=== PATIENT | male | born 1960 | race African-American/Black ===

== ENCOUNTER 2021-08-04 05:48 | Inpatient (IN) | payer MEDICAID ==
[~2021-08-04] VITALS: Ht 177.8 cm; Wt 84.1 kg
[2021-08-04 06:44] LABS: Basophils # (auto) 0.1 10 ^3/uL (0-0.2); Basophils % (auto) 1.2 % (0.0-2.0); Eosinophils # (auto) 0.4 10 ^3/uL (0-0.8); Hematocrit 45.7 % (41.0-53.0); Hemoglobin 15.8 g/dL (13.5-17.5); Lymphocytes # (auto) 2.1 10 ^3/uL (0.4-5.4); Lymphocytes % (auto) 29.3 % (10.0-50.0); Mean Corpuscular Hemoglobin 28.9 pg (28.0-32.0); Mean Corpuscular Hgb Conc. 34.5 g/dL (32.0-36.0); Mean Corpuscular Volume 83.8 fL (80.0-100.0); Monocytes # (auto) 0.6 10 ^3/uL (0-1.3); Monocytes % (auto) 8.6 % (0.0-12.0); Neutrophils % (auto) 54.9 % (37.0-80.0); Nucleated Red Blood Cells % 0.3 %; Red Blood Cells 5.45 10^6/uL (4.5-5.90); Red Cell Distribution Width 13.4 % (11.8-14.3); White Blood Cell 7.2 10^3/uL (4.4-10.8)
[2021-08-04 06:45] LABS: Albumin 3.6 g/dL (3.4-5.0); Potassium 4.1 mmol/L (3.5-5.1)
[2021-08-04 06:47] LABS: BUN/Creatinine Ratio 18.4
[2021-08-04 06:49] LABS: INR 1.01 (0.9-1.15); Partial Thromboplastin Time 26.1 sec (23.6-33.0)
[2021-08-04 06:52] LABS: Bilirubin, Total 0.4 mg/dL (0.2-1.0); Total Protein 7.7 g/dL (6.4-8.2)
[2021-08-04] MEDS ORDERED: ENOXAPARIN SOD 60 MG/0.6 ML SYRINGE SC ONE (07:45)
[2021-08-04] MEDS ORDERED: METOPROLOL TARTRATE 1MG/1ML-5ML VIAL IV ONE (07:45)
[2021-08-04] MEDS ORDERED: ASPirin-EC 81 mg tab PO ONE (07:45)
[2021-08-04] MEDS ORDERED: MORPHINE SULFATE INJECTION 2 MG/ML SYRG IV PRN (13:30)
[2021-08-04] MEDS ORDERED: NITROGLYCERIN 0.4 MG SL TAB SL PRN (13:30)
[2021-08-04] MEDS ORDERED: PROMETHAZINE HCL 25 MG/ML 1ML IV PRN (13:30)
[2021-08-04] MEDS ORDERED: ACETAMINOPHEN 325 MG TAB PO PRN ×2 (13:30)
[2021-08-04 13:41] LABS: Urine Bacteria NONE SEEN /hpf (None Seen); Urine Blood Negative /uL (Negative); Urine Specific Gravity 1.013 (1.001-1.035); Urine WBC 3 /hpf (0 - 3)
[2021-08-04 14:17] LABS: Alcohol, Urine < 3.0 mg/dL (0-10); Amphetamine Screen, Urine NEGATIVE (NEGATIVE); Barbiturate Scree,Urine NEGATIVE (NEGATIVE); Benzodiazephine Screen, Urine NEGATIVE (NEGATIVE); Cannabinoid Screen, Urine NEGATIVE (NEGATIVE); Cocaine Screen, Urine NEGATIVE (NEGATIVE); Opiate Scree,Urine NEGATIVE (NEGATIVE); Phencyclidine Screen, Urine NEGATIVE (NEGATIVE)
[2021-08-04 16:00] VITALS: BP 142/82
[2021-08-04 16:28] LABS: HDL Cholesterol 32 mg/dL (40-59); LDL Cholesterol 96 mg/dL (< 100); Triglycerides 99 mg/dL (< 150)
[2021-08-04 16:30] LABS: Cholesterol 139 mg/dL (< 200)
[2021-08-04] MEDS: ATORVASTATIN 20 MG TAB PO SCH (21:50)
[2021-08-04] MEDS: ENOXAPARIN SOD 80 MG/0.8ML SYRINGE SC SCH (21:51)
[2021-08-04] MEDS: METOPROLOL TARTRATE 25 MG TAB PO SCH (21:51)
[2021-08-04 22:00] VITALS: BP 139/100
[2021-08-05 05:00] VITALS: BP 127/92
[2021-08-05 06:10] LABS: Basophils # (auto) 0.1 10 ^3/uL (0-0.2); Basophils % (auto) 1.1 % (0.0-2.0); Eosinophils # (auto) 0.4 10 ^3/uL (0-0.8); Eosinophils % (auto) 6.7 % (0.0-7.0); Hematocrit 44.5 % (41.0-53.0); Hemoglobin 15.8 g/dL (13.5-17.5); Lymphocytes # (auto) 2.2 10 ^3/uL (0.4-5.4); Lymphocytes % (auto) 36.6 % (10.0-50.0); Mean Corpuscular Hemoglobin 29.5 pg (28.0-32.0); Mean Corpuscular Hgb Conc. 35.6 g/dL (32.0-36.0); Mean Corpuscular Volume 82.8 fL (80.0-100.0); Monocytes # (auto) 0.5 10 ^3/uL (0-1.3); Monocytes % (auto) 8.6 % (0.0-12.0); Neutrophils # (auto) 2.8 10 ^3/uL (1.6-8.6); Nucleated Red Blood Cells % 0.2 %; Red Blood Cells 5.38 10^6/uL (4.5-5.90); White Blood Cell 6.1 10^3/uL (4.4-10.8)
[2021-08-05 06:15] LABS: INR 1.02 (0.9-1.15); Partial Thromboplastin Time 30.5 sec (23.6-33.0)
[2021-08-05 06:32] LABS: Potassium 3.9 mmol/L (3.5-5.1)
[2021-08-05 06:40] LABS: BUN/Creatinine Ratio 18.9; Calcium 8.9 mg/dL (8.5-10.1)
[2021-08-05 09:20] VITALS: BP 149/96
[2021-08-05] MEDS: ASPirin 81 mg TAB PO SCH (10:36)
[2021-08-05] MEDS: LISINOPRIL 5 MG TAB PO SCH (10:37)
[2021-08-05] MEDS: METOPROLOL TARTRATE 25 MG TAB PO SCH ×2 (10:37→21:50)
[2021-08-05] MEDS: FAMOTIDINE 20 MG TAB PO SCH (10:37)
[2021-08-05] MEDS: ENOXAPARIN SOD 80 MG/0.8ML SYRINGE SC SCH ×2 (10:37→21:50)
[2021-08-05 12:33] VITALS: BP 156/99
[2021-08-05 16:48] VITALS: BP 143/78
[2021-08-05] MEDS: ATORVASTATIN 20 MG TAB PO SCH (21:49)
[2021-08-05 22:00] VITALS: BP 140/80
[2021-08-06] VITALS (10 sets, daily range): BP systolic 102–140; BP diastolic 71–94
[2021-08-06] MEDS: ASPirin 81 mg TAB PO SCH (08:48)
[2021-08-06] MEDS: FAMOTIDINE 20 MG TAB PO SCH (08:49)
[2021-08-06] MEDS: METOPROLOL TARTRATE 25 MG TAB PO SCH (08:49)
[2021-08-06] MEDS: LISINOPRIL 5 MG TAB PO SCH (08:51)
[2021-08-06] MEDS: ENOXAPARIN SOD 80 MG/0.8ML SYRINGE SC SCH (08:51)
[2021-08-06] MEDS ORDERED: HEPARIN IN NS 1000Units/500mL 1,500 ML ONE (10:08)
[2021-08-06] MEDS ORDERED: IODIXANOL 320MG/ML 100ML BTL IV ONE (10:08)
[2021-08-06] MEDS ORDERED: diphenhdrAMINE HCL 50 MG/1 ML VL IV ONE (10:45)
[2021-08-06] MEDS ORDERED: MIDAZOLAM HCL 5 MG/ML-1ML VIAL IV ONE (10:45)
[2021-08-06] MEDS ORDERED: fentaNYL CITRATE 100 MCG/2 ML VL IV ONE (10:45)
[2021-08-06] MEDS ORDERED: LIDOCAINE VISCOUS 2% 15ML UD PO ONE (10:45)
[2021-08-06] MEDS ORDERED: MIDAZOLAM HCL 2MG/2ML 2ml VIAL (1mg/ml) ONE (10:48)
[2021-08-06] MEDS ORDERED: SODIUM CHL 0.9% 0 ML ONE (10:54)
[2021-08-06] MEDS ORDERED: HEPARIN SODIUM (PORCINE) 5000 UNITS/ML 1ML VIAL ONE (10:54)
[2021-08-06] MEDS ORDERED: VERAPAMIL 2.5MG/ML INJ 2ML VIAL IV ONE (10:54)
[2021-08-06] MEDS ORDERED: ANGIOMAX 250 MG VIAL IV ONE (10:54)
[2021-08-06] MEDS ORDERED: LIDOCAINE 2%HCL (LOCAL ANESTH.) INJ 10ml MDV ONE ×2 (11:00→11:01)
[2021-08-06] MEDS ORDERED: MET25T PO (15:00)
[2021-08-06] MEDS ORDERED: LISI-275 PO (15:00)
[2021-08-06] MEDS ORDERED: NITR1SPR TL (15:00)
[2021-08-06] MEDS ORDERED: FAMO-12 PO (15:00)
[2021-08-06] MEDS ORDERED: RANO500T2 PO (15:00)
[2021-08-06] MEDS ORDERED: ATOR20TA50 PO (15:00)
[2021-08-06] MEDS ORDERED: CLOP75TA70 PO (15:00)
[2021-08-06] MEDS ORDERED: ASPI1CHW15 PO (15:00)
== END 2021-08-06 20:30 | disposition home or self-care (01) | DRG 191 ==
LOC: ER 05:48 → TELE 13:28 → TELE-WESTW 14:48
PROVIDERS: ADMIT Hospitalist; ATTEND Hospitalist
PROC: B24BZZ4 Ultrasonography of Heart with Aorta, Transesophageal (ICD-10-PCS; principal; 2021-08-06)
PROC: 4A023N7 Measurement of Cardiac Sampling and Pressure, Left Heart, Percutaneous Approach (ICD-10-PCS; 2021-08-06)
PROC: B211YZZ Fluoroscopy of Multiple Coronary Arteries using Other Contrast (ICD-10-PCS; 2021-08-06)
DX: I25.110 Atherosclerotic heart disease of native coronary artery with unstable angina pectoris (principal); I24.9 Acute ischemic heart disease, unspecified; I11.9 Hypertensive heart disease without heart failure; Z95.2 Presence of prosthetic heart valve; Z20.822 Contact with and (suspected) exposure to COVID-19; I25.10 Atherosclerotic heart disease of native coronary artery without angina pectoris; I35.0 Nonrheumatic aortic (valve) stenosis; Z82.3 Family history of stroke; Z82.49 Family history of ischemic heart disease and other diseases of the circulatory system; Z83.3 Family history of diabetes mellitus
CPT/HCPCS: 36415; 71045; 71250; 80048; 80053; 80061; 80307; 81001; 83036; 83695; 83880; 84443; 84484; 85025; 85610; 85730; 93005; 93306; 93312; 93458; G0378; J2001; J2250; Q9967